=== PATIENT | female | born 1960 | race African-American/Black ===

== ENCOUNTER 2016-12-15 15:38 | Outpatient (CLI) | payer OTHER ==
[2016-07-18 21:11] VITALS: BP 208/116
[2016-12-15 15:56] LABS: BASOPHILS % 0.5 (0.0-1.5); EOSINOPHILS % 3.4 % (0.0-6.8); LYMPHOCYTES # 2.6 # k/uL (0.6-4.0); MEAN CORPUSCULAR HEMOGLOBIN 27.5 pg (28.0-34.0); MONOCYTES # 0.2 # k/uL (0.0-0.9); MONOCYTES % 3.7 % (0.0-11.0); NEUTROPHILS # 3.4 # k/uL (1.4-7.7)
[2016-12-15 16:18] LABS: eGFR (African) 40; eGFR (Non-African) 33
== END 2016-12-15 15:40 ==
LOC: LAB 15:38
PROVIDERS: ATTEND Internal Medicine Nephrology
DX: E11.22 Type 2 diabetes mellitus with diabetic chronic kidney disease (principal); I12.9 Hypertensive chronic kidney disease with stage 1 through stage 4 chronic kidney disease, or unspecified chronic kidney disease; N18.9 Chronic kidney disease, unspecified
CPT/HCPCS: 36415; 80053; 83036; 83970; 85025

== ENCOUNTER 2017-01-24 13:00 | Outpatient (CLI) | payer OTHER ==
[2016-07-18 21:11] VITALS: BP 208/116
--- NOTE | 2017-01-24 16:39 | Diagnostic Imaging Report ---
[facility] [id number] [facility].[address] [address] Report Submission Date: Jan 24, 2017 4:35:27 PM REGIONAL MANAGER Patient Study Name: ADRIANO DICKINSON Date: Jan 24, 2017 1:15:30 PM REGIONAL MANAGER Modality Type: US Gender: F Description: TRANSVAGINAL PELVIS : 60 Institution: [facility] Physician: JEYSON LONG Pelvic sonogram, transvaginal. History: Pelvic pain. Findings: The uterus is surgically absent. Neither ovary was visualized. Small amount of free fluid is present within the pelvis. Peristalsing bowel loops are seen within the pelvis. Impression: 1. Status post hysterectomy. No pelvic mass identified. 2. Small volume free pelvic fluid Electronically signed on Jan 24, 2017 4:35:27 PM REGIONAL MANAGER by: Paolo CHADWICK
== END 2017-01-24 13:02 ==
LOC: RAD 13:00
PROVIDERS: ATTEND Physician Assistant
DX: R10.2 Pelvic and perineal pain (principal)
CPT/HCPCS: 76830

== ENCOUNTER 2017-02-04 05:46 | Emergency (ER) | payer OTHER ==
--- NOTE | 2017-02-04 06:54 | Diagnostic Imaging Report ---
SHARIFA MCKEON~ [facility] [address] [facility] [address] [address] ~ ~ ~ ~ Report Submission Date: Feb 04, 2017 6:43:58 AM ROLL COVERER Patient ~ Study Name: ADRIANO DICKINSON ~ Date: Feb 04, 2017 6:25:13 AM ROLL COVERER ~ Modality Type: CR Gender: F ~ Description: SPINE : 60 ~ Institution: [facility] Physician: SHARIFA MCKEON ~ ~ ~ ~ Lumbar spine, AP and lateral, 3 images History: Low back pain, injury Findings: No fracture, subluxation or abnormal bone destruction is identified. Anterior osteophyte formation is noted at all levels. The vertebral bodies and intervertebral disc spaces are of normal height. Impression: Degenerative change but no acute abnormality. ~ Electronically signed on Feb 04, 2017 6:43:58 AM ROLL COVERER by: Vidal CHADWICK
--- NOTE | 2017-02-04 07:04 | ED Physician Documentation ---
Lower Extremity Problem - HISTORIAN Historian: patient - HPI Stated Complaint: LLE pain Chief Complaint: Lower Extremity Problem Additional Information: low back pain and sciatica type leg pain for 2 weeks Location of Injury: L leg Onset: days ago (14) Timing: still present Duration: sudden-Onset Recent Injury: Yes (pt. states she is always lifting and using back) Where: home Severity: moderate Quality: pain, tingling Front/Back of Body, Lg (Color): 1 - pain/tingling Exacerbated By: nothing Relieved By: nothing Associated Symptoms: denies: chest pain, shortness of breath, rapid heart rate, fainting Further Comments: no - ROS CONST: no problems MS/SKIN/LYMPH: leg pain CVS/RESP: none GI/: none EYES/ENT: none NERUO/PSYCH: denies: headache, difficulty walking, dizziness, anxiety, depression - PAST HX Past History: none PE Risk Factors: hypertension Other History: hyperlipidemia, hypertension, diabetes Type 2 Surgeries/Procedures: hysterectomy, other (ortho) Immunizations: referred to PCP Allergies/Adverse Reactions: Allergies Allergy/AdvReac Type Severity Reaction Status Date / Time latex Allergy Intermediate Rash Verified 02/04/17 05:57 Penicillins Allergy Intermediate Nausea/Vomi Verified 02/04/17 05:57 ting erythromycin base Allergy Verified 02/04/17 05:57 Home Medications: Ambulatory Orders Medication Instructions Recorded Chlorthalidone [Thalitone] 25 mg PO QD 11/08/15 CloNIDine HCL [Catapress] 0.1 mg PO QID 11/08/15 Losartan Potassium [Cozaar] 100 mg PO DAILY 11/08/15 Polyethylene Glycol 3350 [Miralax] 17 gm PO [id number] 11/08/15 Pravastatin Sodium 40 mg PO DAILY 11/08/15 Chlorzoxazone [Parafon Forte Dsc] 500 mg PO QID #20 tablet 07/08/16 Meloxicam [Mobic] 7.5 mg PO BID #10 tablet 07/08/16 - SOCIAL HX Smoking History: non-smoker Alcohol Use: none Drug Use: none - FAMILY HX Family History: none - VITAL SIGNS Vital Signs: Vital Signs Temp Pulse Resp BP Pulse Ox 98 H 16 196/95 94 02/04/17 05:50 02/04/17 05:50 02/04/17 05:50 02/04/17 05:50 - REVIEWED ASSESSMENTS Nursing Assessment Reviewed: Yes Vitals Reviewed: Yes Progress - Results/Orders Results/Orders: l-spine x-ray ordered - Progress Progress: pt. stable entire time in er Critical Care Note - Critical Care Note Total Time (mins): 0 ED Results Lab/Radiology - Lab Results Lab Results: none ordered - Radiology Radiology Impressions: x-ray shows no disc deterioration, mild arthritis of spine - Orders Orders: ED Orders Category Date Time Status L SPINE 2 OR 3 VIEWS [RAD] Stat Exams 02/04/17 Ordered Lower Extremity Problem - EXAM General Appearance: mild distress Hips: left hip: non-tender, normal inspection, normal range of motion, no evidence of injury Legs: left: soft tissue tenderness (over distribution of sciatic nerve), other ( pulses intact, no edema, no erythema) Knees: left: non-tender, normal inspection, normal range of motion, no evidence of injury Ankle: left: non-tender, normal inspection, normal range of motion, no evidence of injury Foot: left foot: non-tender, normal inspection, normal range of motion, no evidence of injury DTR - Lower Extremities: knee (R): 2+, knee (L): 1+, ankle (R): 2+, ankle (L): 2 + Neuro/Tendon: normal motor functions, no evidence tendon injury, sensory deficit (4th/5th toes) EENT: eye inspection normal, ENT inspection normal, pharynx normal, no signs of dehydration, NEYDA, no nystagmus, TM's nml RESPIRATORY: no resp distress, chest non-tender, breath sounds normal CVS: reg rate & rhythm, heart sounds normal, equal pulses, no murmur JOINT: joints nml, nml ROM VASCULAR: no vascular compromise, pulses full/equal NEURO/PSYCH: oriented X3, CN's nml as tested, motor nml SKIN: warm/dry, normal color BACK: normal inspection, no CVA tenderness Discharge Clincal Impression: Sciatica Qualifiers: Laterality: left Qualified Code(s): M54.32 - Sciatica, left side Home Medications: Ambulatory Orders Chlorthalidone [Thalitone] 25 mg PO QD 12/12/15 CloNIDine HCL [Catapress] 0.1 mg PO QID 11/08/15 Losartan Potassium [Cozaar] 100 mg PO DAILY 11/08/15 Polyethylene Glycol 3350 [Miralax] 17 gm PO [id number] 11/08/15 Pravastatin Sodium 40 mg PO DAILY 11/08/15 Chlorzoxazone [Parafon Forte Dsc] 500 mg PO QID #20 tablet 07/08/16 Meloxicam [Mobic] 7.5 mg PO BID #10 tablet 07/08/16 Comments: pt. discharged with scripts for Skelaxin 800 mg p.o. qid #60, Meloxicam 1 pill daily #15 Condition: Stable Disposition: 01 HOME, SELF-CARE Decision to Admit: NO Decision Time: 07:00
[2017-02-04 07:07] VITALS: BP 184/75
== END 2017-02-04 07:05 | disposition home or self-care (01) ==
LOC: ED 05:46
DX: M54.32 Sciatica, left side (principal)
CPT/HCPCS: 72100; 99283

== ENCOUNTER 2017-02-13 22:15 | Observation (INO) | payer OTHER ==
[2017-02-13] MEDS ORDERED: CloNIDine HCL 0.1 MG TABLET PO ONE ×2 (22:20→22:25)
[2017-02-13] MEDS ORDERED: LABETALOL HCL 100MG/20ML VIAL ONE (22:37)
[2017-02-13] MEDS ORDERED: LABETALOL HCL 100MG/20ML VIAL IVP STA (22:38)
--- NOTE | 2017-02-13 22:56 | ED Physician Documentation ---
General Adult - HISTORIAN Historian: patient, spouse - HPI Stated Complaint: high blood pressure Chief Complaint: General Adult Additional Information: Seen in ER at [facility] earlier today for elevated blood pressure. 205/110. Sent home without treatment at 1730, but her systolic was down to 160. At about 2030 , she noted her heart was pounding in her ears and she had a HOOKS. 206/119. Came to ER. Says she haqsn't missed any doses of her meds. 265/149 on arrival in ER. 229/89 after 0.2 mg clonidine po. - ROS CONST: no problems EYES/ENT: problems with vision CVS/RESP: denies: chest pain, shortness of breath NEURO/PSYCH: headache - PAST HX Past History: hypertension, other (sciatica, DM) Allergies/Adverse Reactions: Allergies Allergy/AdvReac Type Severity Reaction Status Date / Time latex Allergy Intermediate Rash Verified 02/13/17 22:49 Penicillins Allergy Intermediate Nausea/Vomi Verified 02/13/17 22:49 ting erythromycin base Allergy Verified 02/13/17 22:49 Home Medications: Ambulatory Orders Medication Instructions Recorded Chlorthalidone [Thalitone] 25 mg PO QD 11/08/15 CloNIDine HCL [Catapress] 0.41 mg PO TID 11/08/15 Losartan Potassium [Cozaar] 100 mg PO DAILY 11/08/15 Polyethylene Glycol 3350 [Miralax] 17 gm PO [id number] 11/08/15 Pravastatin Sodium 40 mg PO DAILY 11/08/15 Chlorzoxazone [Parafon Forte Dsc] 500 mg PO QID #20 tablet 07/08/16 Meloxicam [Mobic] 7.5 mg PO BID #10 tablet 07/08/16 - SOCIAL HX Smoking History: non-smoker Alcohol Use: none Drug Use: none - FAMILY HX Family History: No (no signif) - VITAL SIGNS Vital Signs: Vital Signs Temp Pulse Resp BP Pulse Ox 184/75 02/04/17 07:05 - REVIEWED ASSESSMENTS Nursing Assessment Reviewed: Yes Vitals Reviewed: Yes Progress - Progress Progress: BP 180's/80's for an hour afterr slow admin of 10 mg labetalol. 2354. spoke wit hDr. Alvarez. Will admit pt to obs-tele, to him. ED Results Lab/Radiology - Orders Orders: ED Orders Category Date Time Status Continuous EKG monitoring Q1H Care 02/13/17 22:45 Active Continuous Pulse Oximetry Q1H Care 02/13/17 22:45 Active CBC/PLATELET/DIFF Routine Lab 02/13/17 Ordered CMP Routine Lab 02/13/17 Ordered TROPONIN I (cTnI) Stat Lab 02/13/17 Ordered URINALYSIS Routine Lab 02/13/17 Ordered CloNIDine HCL [Catapress] Med 02/13/17 22:25 Discontinued 0.2 mg PO .STK-MED ONE CloNIDine HCL [Catapress] Med 02/13/17 22:20 Discontinued 0.2 mg PO NOW ONE Labetalol HCl [Trandate] Med 02/13/17 22:38 Discontinued 10 mg IVP NOW STA Labetalol HCl [Trandate] Med 02/13/17 22:37 Discontinued 200 mg .ROUTE .STK-MED ONE EKG WITH COMPARISON Stat Ther 02/13/17 Ordered General Adult Physical Exam - PHYSICAL EXAM GENERAL APPEARANCE: no distress EENT: eye inspection normal, ENT inspection normal NECK: normal inspection RESPIRATORY: no resp distress, chest non-tender, breath sounds normal CVS: reg rate & rhythm, heart sounds normal ABDOMEN: soft, normal bowel sounds, non-tender RECTAL: deferred BACK: other (movements w/o pain) SKIN: warm/dry, normal color EXTREMITIES: no evidence of injury NEURO: CN's nml as tested, motor nml, sensation nml, cognition normal Discharge Clincal Impression: Hypertension Qualifiers: Hypertension type: unspecified secondary hypertension Qualified Code(s): I15.9 - Secondary hypertension, unspecified; I15 - Secondary hypertension Home Medications: Ambulatory Orders Chlorthalidone [Thalitone] 25 mg PO QD 11/08/15 CloNIDine HCL [Catapress] 0.41 mg PO TID 11/08/15 Losartan Potassium [Cozaar] 100 mg PO DAILY 11/08/15 Polyethylene Glycol 3350 [Miralax] 17 gm PO [id number] 11/08/15 Pravastatin Sodium 40 mg PO DAILY 11/08/15 Chlorzoxazone [Parafon Forte Dsc] 500 mg PO QID #20 tablet 07/08/16 Meloxicam [Mobic] 7.5 mg PO BID #10 tablet 07/08/16 Condition: Good Disposition: ADMITTED INPATIENT Decision to Admit: [id number] Decision Time: 23:54
[2017-02-13 23:24] LABS: BASOPHILS % 0.7 (0.0-1.5); EOSINOPHILS % 6.1 % (0.0-6.8); LYMPHOCYTES # 1.6 # k/uL (0.6-4.0); MEAN CORPUSCULAR HEMOGLOBIN 27.9 pg (28.0-34.0); MONOCYTES # 0.3 # k/uL (0.0-0.9); MONOCYTES % 6.2 % (0.0-11.0); NEUTROPHILS # 2.3 # k/uL (1.4-7.7)
[2017-02-14] MEDS ORDERED: DICYCLOMINE HCL 20 MG TABLET PO PRN (00:58)
[2017-02-14 01:36] VITALS: BMI 27.4
[2017-02-14 06:01] LABS: APPEARANCE,URINE CLEAR (CLEAR); COLOR,URINE YELLOW (YELLOW); OCCULT BLOOD,URINE NEGATIVE (NEGATIVE); PH URINE 7.5 (5.0 - 8.0); UROBILINOGEN URINE 0.2 Eu (0.2-1.0)
[2017-02-14] MEDS ORDERED: LABETALOL HCL 100MG/20ML VIAL IVP ONE ×2 (06:04→06:52)
[2017-02-14] MEDS: amLODIPine BESYLATE 5 MG TABLET PO SCH ×2 (06:24→09:06)
--- NOTE | 2017-02-14 08:52 | History and Physical Report ---
History of Present Illnes - History of Present Illness Reason for Visit: Uncontrolled hypertension History of Present Illness: This is a 56 year old female admitted with uncontrolled hypertension. She usually sees Dr. Venegas for her blood pressure, and is on hydralazine, losartan and clonidine. She said that yesterday, she felt some pounding in her left ear and checked her blood pressure and it was about 260/120. She went to the ER at , and was given some clonidine (per patient history) and her blood pressure came down transiently, however when she returned home, it went back up again and on admission, it was 265/129. She was given IV lebetolol in the ER and it came down to a systolic of 180s, but she is kept as observation for control of her blood pressure, and I will have Dr. Desir see her tomorrow. She is noted to have a systolic murmur today which she says has not been noted previously. - Past Medical History Cardiac: HTN, Other (Renal insufficiency) ENT: Allergic rhinitis Endocrine: Diabetes - Past Surgical History Past Surgical History: Hysterectomy, Tonsillectomy, Other (sinus surgery, ganglion cyst removal) - Past Social History Smoke: No Alcohol: None Drugs: None Lives: With Family ( and son) Domestic Violence: Negative - Health Maintenance Health Maintenance: Cholesterol Influenza Vaccine: Current for this Influenza Season Pneumonia Vaccine: Yes Resuscitation Status: Resusciation Status Resuscitation Status Full Code - Unable to Obtain History Unable to Obtain: No Review of Systems - Review of Systems Constitutional: negative: Fever, Chills, Sweats Eyes: negative: pain, vision change ENT: negative: Ear Pain, Ear Discharge Respiratory: negative: Cough, Dry, Shortness of Breath Cardiovascular: negative: Chest Pain, Palpitations Gastrointestinal: negative: Nausea, Vomiting, Abdominal Pain Genitourinary: negative: Dysuria Musculoskeletal: negative: Neck Pain Skin: negative: Rash Neurological: negative: Weakness, Numbness, Incoordination, Confusion - Medications/Allergies Allergies/Adverse Reactions: Allergies Allergy/AdvReac Type Severity Reaction Status Date / Time latex Allergy Intermediate Rash Verified 02/13/17 22:49 Penicillins Allergy Intermediate Nausea/Vomi Verified 02/13/17 22:49 ting erythromycin base Allergy Verified 02/13/17 22:49 Current Inpatient Medications: Current Inpatient Medications Amlodipine Besylate (Norvasc) 5 mg PO DAILY UMESH Last Admin: 02/14/17 06:24 Dose: 5 mg Clonidine HCl (Catapress) 0.2 mg PO TID [facility] Dicyclomine HCl (Bentyl) 20 mg PO Q6 PRN PRN Reason: Abdominal Pain Insulin Detemir (Levemir Flex-Pen) 8 unit SQ HS [facility] Losartan Potassium (Cozaar) 100 mg PO DAILY [facility] Metformin HCl (Glucophage) [place] [id number] [facility] Last Admin: 02/14/17 08:05 Dose: 500 mg Miscellaneous ( Metaxalone) 800 mg PO QID [facility] Miscellaneous ( Meloxicam) 15 mg PO D [facility] Simvastatin (Zocor) [address] [facility] Exam - Exam Vital Signs: Vital Signs (72 hours) 02/14/17 02/14/17 02/14/17 00:32 01:00 01:02 Temperature 98.4 F Pulse Rate 77 Pulse Rate [ 68 Right Pulse ox] Respiratory 18 Rate Blood Pressure 168/63 168/63 [Left Arm] O2 Sat by Pulse 98 Oximetry 02/14/17 02/14/17 02/14/17 02:00 03:00 03:17 Temperature Pulse Rate 70 70 Pulse Rate [ Right Pulse ox] Respiratory Rate Blood Pressure 186/85 [Left Arm] O2 Sat by Pulse Oximetry 02/14/17 02/14/17 02/14/17 04:00 04:02 05:00 Temperature Pulse Rate 68 65 Pulse Rate [ Right Pulse ox] Respiratory Rate Blood Pressure [Left Arm] O2 Sat by Pulse 98 Oximetry 02/14/17 02/14/17 02/14/17 05:47 05:52 06:50 Temperature 97.1 F L Pulse Rate 66 Pulse Rate [ 70 Right Pulse ox] Respiratory 17 Rate Blood Pressure 211/85 219/95 [Left Arm] O2 Sat by Pulse 100 Oximetry 02/14/17 02/14/17 02/14/17 07:00 07:48 08:00 Temperature Pulse Rate 77 77 Pulse Rate [ 86 Right Pulse ox] Respiratory 16 Rate Blood Pressure [Left Arm] O2 Sat by Pulse 99 Oximetry 02/14/17 08:20 Temperature Pulse Rate 79 Pulse Rate [ Right Pulse ox] Respiratory Rate Blood Pressure [Left Arm] O2 Sat by Pulse Oximetry General: Alert, Oriented to Person, Oriented to Place, Oriented to Time, Cooperative, No acute distress HEENT: Atraumatic, PERRLA, EOMI Neck: No: Stridor, Rigidity Lungs: Clear to auscultation, Normal air movement, Speaks full Sentences. No: Respiratory Distress, Wheezes, Rales Cardiovascular: Regular rate, Murmur (II/ RAKEL) Murmur: Systolic Murmur Heart Murmur Grade: II Abdomen: Normal bowel sounds, Soft, No tenderness Genitourinary: No: Other Male Genitourinary: No: Other Female Genitourinary: No: Other Integumentary: Normal, [place], Warm Extremities: No clubbing, No cyanosis, No edema, Other (Feet are in very good condition, no onychomycosis, easily palpable pulses, no calluses, no decreased sensation) Neurological: Normal gait, Normal speech Psych/Mental Status: Mental status NL, Mood NL Assessment/Plan - Assessment/Plan (1) Hypertension Status: Acute Current Visit: No Qualifiers: Hypertension type: renovascular hypertension Qualified Code(s): I15.0 - Renovascular hypertension Assessment: Continue losartan, clonidine and hydralazine Have started PO amlodipine Will discuss with Dr. Venegas Plan: Discussed with Dr. Venegas, who recommended stopping the PO clonidine and starting a clonidine TTS-2 patch. (2) Diabetes mellitus Status: Acute Current Visit: Yes Qualifiers: Diabetes mellitus type: type 2 Diabetes mellitus complication status: with circulatory complication Diabetes mellitus complication detail: with other circulatory complications Diabetes mellitus criminology teacher insulin use: with half-way use Qualified Code(s): E11.59 - Type 2 diabetes mellitus with other circulatory complications; Z79.4 - assisted (current) use of insulin Assessment: Continue current insulin therapy Reviewed last A1C Dr. Venegas recommended against stopping metformin at this time (3) Chronic renal insufficiency, stage II (mild) Status: Acute Current Visit: Yes Assessment: Chronic Plan: With current creatinine, may need to d/c her metformin VTE Assessment - RISK FACTOR SCORE VTE RISK FACTOR SCORES: AGE 40-60 YEARS - RISK VTE LOW RISK: SCORE OF 1 OR LESS (RISK PROXIMAL DVT 0.4%) NO PROPHYLAXIS NEEDED (no DVT prophylaxis indicated)
[2017-02-14] MEDS ORDERED: METAXALONE 800 MG PO SCH (09:00)
[2017-02-14] MEDS ORDERED: CloNIDine HCL 0.1 MG TABLET PO SCH (09:00)
[2017-02-14] MEDS ORDERED: MELOXICAM 15 MG PO SCH (09:00)
[2017-02-14] MEDS: LOSARTAN POTASSIUM 50 MG TABLET PO SCH (09:06)
[2017-02-14] MEDS ORDERED: INSULIN DETEMIR 100 UNIT/ML 3ML PEN.INJCTR SQ ONE (12:43)
[2017-02-14] MEDS ORDERED: SIMVASTATIN 20 MG TABLET ONE (12:43)
[2017-02-14] MEDS ORDERED: PATIENT OWN MED 1 EACH EACH TOP SCH (17:00)
[2017-02-14] MEDS: SIMVASTATIN 20 MG TABLET PO SCH (20:22)
[2017-02-14] MEDS: INSULIN DETEMIR 100 UNIT/ML 3ML PEN.INJCTR SQ SCH (20:24)
[2017-02-15] MEDS ORDERED: LABETALOL HCL 100MG/20ML VIAL IVP STA ×3 (01:38→08:45)
[2017-02-15] MEDS ORDERED: SALINE FLUSH 10 ML DISP.SYRIN IVF ONE ×6 (01:44→12:37)
[2017-02-15 06:59] LABS: eGFR (African) > 60; eGFR (Non-African) > 60
[2017-02-15] MEDS: ONDANSETRON HCL/PF 4 MG/ 2ML VIAL IVP PRN ×2 (07:01→12:48)
[2017-02-15] MEDS: amLODIPine BESYLATE 5 MG TABLET PO SCH (08:32)
[2017-02-15] MEDS: LOSARTAN POTASSIUM 50 MG TABLET PO SCH (08:33)
--- NOTE | 2017-02-15 08:52 | Inpatient Progress Note ---
Subjective - Required Recertification Statement I anticipate X number of days because-include discharge plan: 1 - Review of Systems Events since last encounter: Manasa is still having markedly elevated blood pressures. She had some left sided facial pain and some nausea and vomiting. Both of these have abated. Her blood pressure is still 202/120 after her last dose of 10 mg labetalol. I called the admission advisor at for transfer to their facility, however they are currently on a bed hold. I called Dr. Venegas also and he called them also, but we are not able to procure a bed for transfer. They will call today if a bed opens up. Otherwise, Dr. Venegas will see her this afternoon when he gets here at about 1:30. In the meantime, he has recommended that we continue the labetalol to control her blood pressure. I have ordered another EKG and stat troponin also, both of which are pending. General: Denies: Chills HEENT: Head Aches. Denies: Visual Changes Pulmonary: Denies: Dyspnea, Cough Cardiovascular: Denies: Chest Pain, Palpitations Gastrointestinal: Nausea, Vomiting Genitourinary: Denies: Dysuria, Frequency Musculoskeletal: Denies: Neck Pain, Shoulder Pain Neurological: Denies: Change in Speech, Confusion Objective - Exam Vitals and I&O: Vital Signs Temp 98.6 F 02/15/17 06:00 Pulse 98 H 02/15/17 08:27 Resp 20 02/15/17 06:00 BP 212/116 02/15/17 06:00 Pulse Ox 98 02/15/17 07:29 Intake & Output 02/14/17 02/14/17 02/15/17 11:59 23:59 11:59 Intake Total 120 560 240 Balance 120 560 240 Weight 68.039 kg Intake: Oral 120 560 240 Other: Voiding Method Toilet # Voids 1 1 General: Alert, Oriented to Person, Oriented to Place, Mild distress (due to facial pain (which is decreased)) HEENT: Atraumatic, PERRLA, EOMI, Mouth Mucous membr. moist/[place] Neck: Supple, No JVD Lungs: Clear to auscultation, Normal air movement Cardiovascular: Regular rate, Murmur (II/) Abdomen: Normal bowel sounds, Soft, No tenderness, No masses, Other Extremities: No clubbing, No cyanosis Neurological: Normal speech, Cranial nerves 3-12 NL, Reflexes 2+, Other (no dysmetria, no motor deficits) - Results Results: Laboratory Results WBC 4.70 K/ul (4.00-12.00) 02/13/17 23:13 RBC 4.04 M/ul (3.90-5.20) 02/13/17 23:13 Hgb 11.3 g/dL (12.0-16.0) L 02/13/17 23:13 Hct 35.0 % (34.5-46.5) 02/13/17 23:13 MCV 86.4 fl (80.0-100.0) 02/13/17 23:13 MCH 27.9 pg (28.0-34.0) L 02/13/17 23: MCHC 32.3 g/dL (30.0-36.0) 02/13/17 23:13 RDW 13.0 % (11.3-14.3) 02/13/17 23:13 Plt Count 224 K/mm3 (130-400) 02/13/17 23:13 Neut % (Auto) 49.8 % (39.0-79.0) 02/13/17 23:13 Lymph % (Auto) 35.0 % (16.0-50.0) 02/13/17 23:13 [place] % (Auto) 6.2 % (0.0-11.0) 02/13/17 23:13 Eos % (Auto) 6.1 % (0.0-6.8) 02/13/17 23:13 Baso % (Auto) 0.7 (0.0-1.5) 02/13/17 23:13 Neut # 2.3 # k/uL (1.4-7.7) 02/13/17 23:13 Lymph # 1.6 # k/uL (0.6-4.0) 02/13/17 23:13 [place] # 0.3 # k/uL (0.0-0.9) 02/13/17 23:13 Eos # 0.3 # k/uL (0.0-0.6) 02/13/17 23:13 Baso # 0.0 # k/uL (0.0-0.5) 02/13/17 23:13 Reactive Lymphs % 2.2 % (0.0-5.0) 02/13/17 23:13 Reactive Lymphs # 0.1 # k/uL (0.0-0.8) 02/13/17 23:13 Sodium 140 mmol/L (136-145) 02/15/17 06:05 Potassium 3.2 mmol/L (3.5-5.0) L 02/15/17 06:05 Chloride 105 mmol/L (98-110) 02/15/17 06:05 Carbon Dioxide 29 mmol/L (20-32) 02/15/17 06:05 BUN 24 mg/dL (10-26) 02/15/17 06:05 Creatinine 1.2 mg/dL (0.4-1.5) 02/15/17 06:05 Estimated Creat Clear 66 02/15/17 06:05 Est GFR ( Amer) > 60 (60-) 02/15/17 06:05 Est GFR (Non-Af Amer) > 60 (60-) 02/15/17 06:05 Glucose 176 mg/dL (70-99) H 02/15/17 06:05 Calcium 11.1 mg/dL (8.5-10.5) H 02/15/17 06:05 Total Bilirubin 0.3 mg/dL (0.2-1.2) 02/13/17 23:13 AST 16 U/L (0-41) 02/13/17 23:13 ALT 12 U/L (0-45) 02/13/17 23:13 Alkaline Phosphatase 77 U/L (46-116) 02/13/17 23:13 Troponin I < 0.03 ng/mL (0.03-0.06) L 02/13/17 23:13 Total Protein 7.6 g/dL (6.0-8.5) 02/13/17 23:13 Albumin 4.8 g/dL (3.0-5.5) 02/13/17 23:13 Urine Color Yellow (YELLOW) 02/13/17 23:30 Urine Appearance Clear (CLEAR) 02/13/17 23:30 Urine pH 7.5 (5.0 - 8.0) 02/13/17 23:30 Ur Specific [place] 1.020 (1.010-1.030) 02/13/17 23:30 Urine Protein Negative mg/dL (NEGATIVE) 02/13/17 23:30 Urine Ketones Negative mg/dL (NEGATIVE) 02/13/17 23:30 Urine Occult Blood Negative (NEGATIVE) 02/13/17 23:30 Urine Nitrite Negative (NEGATIVE) 02/13/17 23:30 Urine Bilirubin Negative (NEGATIVE) 02/13/17 23:30 Urine Urobilinogen 0.2 Eu (0.2-1.0) 02/13/17 23:30 Ur Leukocyte Esterase Negative (NEGATIVE) 02/13/17 23:30 Urine Glucose Trace mg/dL (NEGATIVE) 02/13/17 23:30 Assessment/Plan - Assessment/Plan (1) Hypertension Status: Acute Current Visit: No Qualifiers: Hypertension type: renovascular hypertension Qualified Code(s): I15.0 - Renovascular hypertension Assessment: Not improved Plan: Continue to work on transfer See Dr. Venegas today if unable to effect transfer prior to his arrival (2) Diabetes mellitus Status: Acute Current Visit: Yes Qualifiers: Diabetes mellitus type: type 2 Diabetes mellitus complication status: with circulatory complication Diabetes mellitus complication detail: with other circulatory complications Diabetes mellitus half-way insulin use: with oil heaterman use Qualified Code(s): E11.59 - Type 2 diabetes mellitus with other circulatory complications; Z79.4 - termite treater (current) use of insulin (3) Chronic renal insufficiency, stage II (mild) Status: Acute Current Visit: Yes
[2017-02-15] MEDS ORDERED: CLONIDINE TTS TOP SCH (09:00)
[2017-02-15] MEDS ORDERED: hydrALAZINE HCL 20 MG/1 ML IVP ONE (10:01)
[2017-02-15] MEDS: CloNIDine HCL 0.1 MG TABLET PO SCH (17:14)
[2017-02-15] MEDS: HYDRALAZINE HCL 25 MG TABLET PO SCH (17:14)
[2017-02-15] MEDS: SIMVASTATIN 20 MG TABLET PO SCH (19:42)
[2017-02-15] MEDS: INSULIN DETEMIR 100 UNIT/ML 3ML PEN.INJCTR SQ SCH (20:08)
[2017-02-16] MEDS: CloNIDine HCL 0.1 MG TABLET PO SCH ×2 (00:05→05:19)
[2017-02-16] MEDS: HYDRALAZINE HCL 25 MG TABLET PO SCH (08:42)
[2017-02-16] MEDS: LOSARTAN POTASSIUM 50 MG TABLET PO SCH (08:43)
[2017-02-16] MEDS: amLODIPine BESYLATE 5 MG TABLET PO SCH (08:44)
[2017-02-16 10:11] VITALS: BP 126/64
--- NOTE | 2017-02-16 14:51 | Discharge Summary ---
DATE OF ADMISSION: February 14, 2017 DATE OF DISCHARGE: February 16, 2017 DIAGNOSES ON THIS HOSPITALIZATION: 1. Malignant hypertension. 2. Diabetes mellitus type 2. CONSULTATIONS ON THIS HOSPITALIZATION: Cardiology with Dr. Desir. Nephrology with Dr. Venegas. SUMMARIZATION OF ADMISSION HISTORY AND PHYSICAL: This is a 56-year-old female who presented with uncontrolled blood pressure. She had been to the [facility] and was given some medication. Her blood pressure transiently came down but,when she returned home, it was markedly elevated again at 260/120. As a result, she came to our emergency room for an evaluation where was noted to continue to have markedly elevated blood pressures. She was given IV labetalol with minimal improvement and then some IV hydralazine, which actually did help. Dr. Venegas had suggested a 0.2 mg clonidine patch and that was placed with continuation of her oral clonidine also. In addition to this, her losartan was continued during her hospital stay , as well as her oral hydralazine. HOSPITAL COURSE: She actually improved significantly after the aforementioned changes were made. She was discharged to home then with the addition of a clonidine TTS-2 patch to be applied weekly. Continue clonidine 0.2 mg p.o. t.i.d. and hydralazine 50 mg p.o. t.i.d. and losartan 100 mg t.i.d. and continue her insulin as prior to admission. CONDITION ON DISCHARGE: She is discharged to home in markedly improved condition. DISCHARGE INSTRUCTIONS: She will follow up with Dr. Desir on Tuesday of this week and will follow up with Dr. Lopez in the next week. NETTA
[2017-02-21] MEDS ORDERED: PATIENT OWN MED 1 EACH EACH TOP SCH (06:00)
== END 2017-02-16 09:40 | disposition home or self-care (01) ==
LOC: ED 22:15 → SOUTH 02-14 00:04
PROVIDERS: ADMIT Nurse Practitioner; ATTEND Family Medicine
DX: I10 Essential (primary) hypertension (principal); E11.9 Type 2 diabetes mellitus without complications
CPT/HCPCS: 36415; 80048; 80053; 81002; 84484; 85025; 93005; G0378; J0360; J1815; J2405; J3490; 96372; 96374; 96375; 96376; S1016

== ENCOUNTER 2017-02-18 03:31 | Emergency (ER) | payer OTHER ==
[2017-02-18] MEDS ORDERED: HYDRALAZINE HCL 25 MG TABLET PO ONE (03:34)
[2017-02-18] MEDS ORDERED: hydrALAZINE HCL 20 MG/1 ML IVP ONE ×4 (03:42→06:28)
[2017-02-18] MEDS ORDERED: ONDANSETRON HCL/PF 4 MG/ 2ML VIAL ONE (06:58)
[2017-02-18] MEDS ORDERED: ONDANSETRON HCL/PF 4 MG/ 2ML VIAL IVP ONE (07:01)
[2017-02-18 08:10] VITALS: BP 159/77
--- NOTE | 2017-02-18 08:17 | ED Physician Documentation ---
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) Timing: still present Severity: moderate Modifying Factors: hxc of accelerated htn Quality: pounding Location: ears Further Comments: no - ROS CONST: other (recent hosp for bp) EYES/ENT: none CVS/RESP: none GI/: none MS/SKIN/LYMPH: none NEURO/PSYCH: headache - PAST HX Past History: hypertension Other History: none Surgeries/Procedures: none Immunizations: referred to PCP Allergies/Adverse Reactions: Allergies Allergy/AdvReac Type Severity Reaction Status Date / Time latex Allergy Intermediate Rash Verified 02/18/17 03:42 Penicillins Allergy Intermediate Nausea/Vomi Verified 02/18/17 03:42 ting erythromycin base Allergy Verified 02/18/17 03:42 Home Medications: Ambulatory Orders Medication Instructions Recorded Chlorthalidone [Thalitone] 25 mg PO QD 11/08/15 CloNIDine HCL [Catapress] 0.41 mg PO TID 11/08/15 Losartan Potassium [Cozaar] 100 mg PO DAILY 11/08/15 Polyethylene Glycol 3350 [Miralax] 17 gm PO [id number] 11/08/15 Pravastatin Sodium 40 mg PO DAILY 11/08/15 Chlorzoxazone [Parafon Forte Dsc] 500 mg PO QID #20 tablet 07/08/16 Meloxicam [Mobic] 7.5 mg PO BID #10 tablet 07/08/16 - SOCIAL HX Smoking History: non-smoker Alcohol Use: none Drug Use: none - FAMILY HX Family History: No - VITAL SIGNS Vital Signs: Vital Signs Temp Pulse Resp BP Pulse Ox 88 18 159/77 99 02/18/17 08:08 02/18/17 08:08 02/18/17 08:08 02/18/17 08:08 - REVIEWED ASSESSMENTS Nursing Assessment Reviewed: Yes Vitals Reviewed: Yes Progress - Results/Orders Results/Orders: no testing ordered - Progress Progress: pt. given a total of 40 mg hydralazine ivp with reduction from 220/120 to 147/71 Critical Care Note - Critical Care Note Total Time (mins): 0 ED Results Lab/Radiology - Lab Results Lab Results: see nurses notes - Radiology Radiology Impressions: no testing ordered - Orders Orders: ED Orders Category Date Time Status Place Saline Lock/IV Now Care 02/18/17 03:42 Active Hydralazine HCl [Apresoline] Med 02/18/17 03:34 Discontinued 50 mg PO QID ONE Ondansetron HCl/Pf [Zofran 4 mg/2 ml] Med 02/18/17 06:58 Discontinued 8 mg .ROUTE .STK-MED ONE Ondansetron HCl/Pf [Zofran 4 mg/2 ml] Med 02/18/17 07:01 Discontinued 8 mg IVP NOW ONE hydrALAZINE HCL [Apresoline] Med 02/18/17 03:42 Discontinued 10 mg IVP NOW ONE hydrALAZINE HCL [Apresoline] Med 02/18/17 04:51 Discontinued 10 mg IVP NOW ONE hydrALAZINE HCL [Apresoline] Med 02/18/17 05:30 Discontinued 10 mg IVP NOW ONE hydrALAZINE HCL [Apresoline] Med 02/18/17 06:28 Discontinued 10 mg IVP NOW ONE General Adult Physical Exam - PHYSICAL EXAM GENERAL APPEARANCE: moderate distress EENT: eye inspection normal, ENT inspection normal, pharynx normal, no signs of dehydration, NEYDA, no nystagmus, TM's nml NECK: normal inspection, thyroid normal, supple RESPIRATORY: no resp distress, chest non-tender, breath sounds normal CVS: reg rate & rhythm, heart sounds normal, equal pulses ABDOMEN: soft, no organomegaly, normal bowel sounds, no abdominal bruit, no distension, non-tender BACK: normal inspection, no CVA tenderness SKIN: warm/dry, normal color EXTREMITIES: non-tender, normal range of motion, no evidence of injury, no edema NEURO: oriented X3, CN's nml as tested, motor nml, sensation nml, mood/affect nml, cognition normal Discharge Clincal Impression: Hypertensive crisis Referrals: Shilpi Lopez MD [Primary Care Provider] - 2 Days Home Medications: Ambulatory Orders Chlorthalidone [Thalitone] 25 mg PO QD 11/08/15 CloNIDine HCL [Catapress] 0.41 mg PO TID 11/08/15 Losartan Potassium [Cozaar] 100 mg PO DAILY 11/08/15 Polyethylene Glycol 3350 [Miralax] 17 gm PO [id number] 11/08/15 Pravastatin Sodium 40 mg PO DAILY 11/08/15 Chlorzoxazone [Parafon Forte Dsc] 500 mg PO QID #20 tablet 07/08/16 Meloxicam [Mobic] 7.5 mg PO BID #10 tablet 07/08/16 Comments: Pt. discharged in stable condition with bp reduced to 147/71, n/v reduced, following up today with nephrology. Increase hydralazine to 100 mg p.o. bid. Condition: Stable Disposition: 01 HOME, SELF-CARE Decision to Admit: NO Decision Time: 08:05
== END 2017-02-18 08:08 | disposition home or self-care (01) ==
LOC: ED 03:31
DX: I10 Essential (primary) hypertension (principal)
CPT/HCPCS: J0360; J2405; 96374; 96375; 96376; 99283; S1016

== ENCOUNTER 2017-02-21 01:18 | Emergency (ER) | payer OTHER ==
[2017-02-21] MEDS: LABETALOL HCL 100MG/20ML VIAL IVP STA (01:36)
[2017-02-21] MEDS: ONDANSETRON HCL/PF 4 MG/ 2ML VIAL IVP ONE (01:39)
--- NOTE | 2017-02-21 01:44 | ED Physician Documentation ---
General Adult - HISTORIAN Historian: patient, paramedics - HPI Stated Complaint: high blood pressure Chief Complaint: General Adult Additional Information: Awakened from sleep by buzzing/roaring in left ear and right occipital HOOKS. Noted BP elevated. Says Dr. Venegas told her to come to [facility] if her BP elevated again. When EMS arrived, her systolic BP was 221 and she mentioned blurred vision. Daughter wanted her brought to [facility] ER. BP here 221/98. BP 187/84 eight minutes after 10 mg IV labetalol. Says she feels much better. - ROS CONST: no problems - PAST HX Past History: hypertension, other (NIDDM) Allergies/Adverse Reactions: Allergies Allergy/AdvReac Type Severity Reaction Status Date / Time latex Allergy Intermediate Rash Verified 02/18/17 03:42 Penicillins Allergy Intermediate Nausea/Vomi Verified 02/18/17 03:42 ting erythromycin base Allergy Verified 02/18/17 03:42 Home Medications: Ambulatory Orders Medication Instructions Recorded Chlorthalidone [Thalitone] 25 mg PO QD 11/08/15 CloNIDine HCL [Catapress] 0.41 mg PO TID 11/08/15 Losartan Potassium [Cozaar] 100 mg PO DAILY 11/08/15 Polyethylene Glycol 3350 [Miralax] 17 gm PO [id number] 11/08/15 Pravastatin Sodium 40 mg PO DAILY 11/08/15 Chlorzoxazone [Parafon Forte Dsc] 500 mg PO QID #20 tablet 07/08/16 Meloxicam [Mobic] 7.5 mg PO BID #10 tablet 07/08/16 hydrALAZINE HCL [Apresoline] 100 mg PO BID 02/21/17 - SOCIAL HX Smoking History: non-smoker - FAMILY HX Family History: No - VITAL SIGNS Vital Signs: Vital Signs Temp Pulse Resp BP Pulse Ox 159/77 02/18/17 08:08 - REVIEWED ASSESSMENTS Nursing Assessment Reviewed: Yes Vitals Reviewed: Yes Progress - Progress Progress: 251, Discussed patient with with Dr. Mendez, [facility] ER. Will send patient home but to contact Dr. Venegas today. BP Stable for more than an hour 194 systolic when she got up to bathroom. Otherwise, 160's, 170's over 80's. 025, 167/75. ED Results Lab/Radiology - Orders Orders: ED Orders Category Date Time Status Continuous EKG monitoring Q1H Care 02/21/17 01:28 Active Continuous Pulse Oximetry Q1H Care 02/21/17 01:[address] Saline Lock/IV Now Care 02/21/17 01:28 Active CBC/PLATELET/DIFF Routine Lab 02/21/17 Ordered CMP Routine Lab 02/21/17 Ordered URINALYSIS Routine Lab 02/21/17 Ordered Labetalol HCl [Trandate] Med 02/21/17 01:28 Discontinued 10 mg IVP NOW STA Ondansetron HCl/Pf [Zofran 4 mg/2 ml] Med 02/21/17 01:36 Once 4 mg IVP NOW ONE Oxygen Daily Oxygen 02/21/17 01:45 Ordered EKG WITH COMPARISON Stat Ther 02/21/17 Ordered General Adult Physical Exam - PHYSICAL EXAM GENERAL APPEARANCE: moderate distress EENT: eye inspection normal, ENT inspection normal, pharynx normal NECK: normal inspection, supple RESPIRATORY: no resp distress, chest non-tender, breath sounds normal CVS: reg rate & rhythm, heart sounds normal ABDOMEN: soft, normal bowel sounds RECTAL: deferred BACK: normal inspection SKIN: warm/dry, normal color EXTREMITIES: no evidence of injury NEURO: CN's nml as tested, motor nml, sensation nml Discharge Clincal Impression: Hypertensive crisis Additional Instructions: Contact Dr. Venegas today. Home Medications: Ambulatory Orders Chlorthalidone [Thalitone] 25 mg PO QD 11/08/15 CloNIDine HCL [Catapress] 0.41 mg PO TID 11/08/15 Losartan Potassium [Cozaar] 100 mg PO DAILY 11/08/15 Polyethylene Glycol 3350 [Miralax] 17 gm PO [id number] 11/08/15 Pravastatin Sodium 40 mg PO DAILY 11/08/15 Chlorzoxazone [Parafon Forte Dsc] 500 mg PO QID #20 tablet 07/08/16 Meloxicam [Mobic] 7.5 mg PO BID #10 tablet 07/08/16 hydrALAZINE HCL [Apresoline] 100 mg PO BID 02/21/17 Condition: Fair Disposition: 01 HOME, SELF-CARE Decision to Admit: NO Decision Time: 02:52
[2017-02-21 02:16] LABS: BASOPHILS % 0.5 (0.0-1.5); LYMPHOCYTES # 1.7 # k/uL (0.6-4.0); MEAN CORPUSCULAR HEMOGLOBIN 28.5 pg (28.0-34.0); MONOCYTES # 0.2 # k/uL (0.0-0.9); MONOCYTES % 3.3 % (0.0-11.0); NEUTROPHILS # 3.3 # k/uL (1.4-7.7)
[2017-02-21 02:42] LABS: eGFR (African) > 60; eGFR (Non-African) 38
[2017-02-21 03:20] VITALS: BP 153/68
[2017-02-21 06:25] LABS: APPEARANCE,URINE CLEAR (CLEAR); COLOR,URINE YELLOW (YELLOW); OCCULT BLOOD,URINE NEGATIVE (NEGATIVE); UROBILINOGEN URINE 0.2 Eu (0.2-1.0)
== END 2017-02-21 03:05 | disposition home or self-care (01) ==
LOC: ED 01:18
DX: I10 Essential (primary) hypertension (principal)
CPT/HCPCS: 80053; 81002; 85025; 93005; J2405; J3490; 96374; 96375; 99283; S1016

== ENCOUNTER 2017-02-22 14:15 | Outpatient (CLI) | payer OTHER ==
[2017-02-21 03:20] VITALS: BP 153/68
[2017-02-22 14:56] LABS: BASOPHILS % 0.3 (0.0-1.5); EOSINOPHILS % 4.1 % (0.0-6.8); LYMPHOCYTES # 2.1 # k/uL (0.6-4.0); MONOCYTES # 0.2 # k/uL (0.0-0.9); MONOCYTES % 3.4 % (0.0-11.0)
[2017-02-22 15:17] LABS: eGFR (African) > 60; eGFR (Non-African) > 60
== END 2017-02-22 14:16 ==
LOC: LAB 14:15
PROVIDERS: ATTEND Internal Medicine Nephrology
DX: E11.22 Type 2 diabetes mellitus with diabetic chronic kidney disease (principal); I12.9 Hypertensive chronic kidney disease with stage 1 through stage 4 chronic kidney disease, or unspecified chronic kidney disease; N18.9 Chronic kidney disease, unspecified
CPT/HCPCS: 36415; 80053; 83970; 85025

== ENCOUNTER 2017-03-15 15:22 | Outpatient (CLI) | payer OTHER ==
[2017-03-15 16:03] LABS: BASOPHILS % 0.5 (0.0-1.5); EOSINOPHILS % 3.8 % (0.0-6.8); MEAN CORPUSCULAR HEMOGLOBIN 27.7 pg (28.0-34.0); MEAN CORPUSCULAR VOLUME 85.3 fl (80.0-100.0); MONOCYTES % 3.6 % (0.0-11.0); NEUTROPHILS # 3.4 # k/uL (1.4-7.7)
[2017-03-15 16:24] LABS: eGFR (African) > 60; eGFR (Non-African) > 60
[2017-03-16 09:07] LABS: APPEARANCE,URINE Clear (CLEAR); COLOR,URINE Yellow (YELLOW); OCCULT BLOOD,URINE Negative (NEGATIVE); PH URINE 5.5 (5.0 - 8.0); UROBILINOGEN URINE 0.2 Eu (0.2-1.0)
[2017-03-20 17:11] LABS: ALDOS/RENIN RATIO 105.8 (0.0-30.0); RENIN ACTIVITY 0.173 ng/mL/hr (0.167-5.380)
== END 2017-03-15 15:23 ==
LOC: LAB 15:22
PROVIDERS: ATTEND Internal Medicine Nephrology
DX: I12.9 Hypertensive chronic kidney disease with stage 1 through stage 4 chronic kidney disease, or unspecified chronic kidney disease (principal); N18.9 Chronic kidney disease, unspecified
CPT/HCPCS: 36415; 80053; 81002; 82088; 83036; 83835; 84244; 85025

== ENCOUNTER 2017-03-29 12:51 | Outpatient (CLI) | payer OTHER | END 2017-03-29 12:52 | LOC: CARD 12:51 | PROVIDERS: ATTEND Internal Medicine Cardiovascular Disease | DX: I10 Essential (primary) hypertension (principal) | CPT/HCPCS: 99214 ==

== ENCOUNTER 2017-05-24 15:09 | Outpatient (CLI) | payer OTHER | END 2017-05-24 15:10 | LOC: NEPHRO 15:09 | PROVIDERS: ATTEND Internal Medicine Nephrology | DX: I10 Essential (primary) hypertension (principal); N18.9 Chronic kidney disease, unspecified | CPT/HCPCS: 99213 ==

== ENCOUNTER 2017-06-21 11:25 | Outpatient (CLI) | payer OTHER | END 2017-06-21 11:26 | LOC: LAB 11:25 | PROVIDERS: ATTEND Physician Assistant | DX: Z00.00 Encounter for general adult medical examination without abnormal findings (principal) | CPT/HCPCS: 36415; 84439; 84443; 84481 ==

== ENCOUNTER 2017-06-24 09:54 | Outpatient (CLI) | payer OTHER ==
--- NOTE | 2017-06-24 19:23 | Diagnostic Imaging Report ---
JEYSON LONG [facility] [address] [facility] [address] [id number] Report Submission Date: Jun 24, 2017 5:21:18 PM CDT Patient Study Name: ADRIANO DICKINSON Date: Jun 24, 2017 10:06:35 AM CDT Modality Type: US Gender: F Description: US THYROID SOFT TISS HEAD/NCK : 60 Institution: [facility] Physician: JEYSON LONG Examination: Ultrasound thyroid History: Palpable lump Comparison exams: None available Findings: Right thyroid lobe measures 5.0 x 1.7 x 2.8 cm. Left thyroid lobe measures 5.2 x 2.1 x 2.1cm. Scattered nodules identified bilaterally. Largest on the on the right measures 1.1 cm and is associated with peripheral echogenic reflections consistent with calcifications. Solid central characteristics. Largest nodule on the left measures 4 mm. Isthmus measures 3.3 mm. Right aspect of the thyroid gland is more prominent measuring 6.3 mm. Impression: Bilateral thyroid nodules and right isthmus fullness. Largest nodule is on the right which appears to demonstrate solid central characteristics with peripheral calcifications. Options include close interval followup versus needle aspiration for cytologic evaluation. Electronically signed on Jun 24, 2017 5:21:18 PM CDT by: Brian CHADWICK
== END 2017-06-24 09:55 ==
LOC: RAD 09:54
PROVIDERS: ATTEND Physician Assistant
DX: R22.1 Localized swelling, mass and lump, neck (principal)
CPT/HCPCS: 76536

== ENCOUNTER 2017-07-01 12:27 | Emergency (ER) | payer OTHER ==
--- NOTE | 2017-07-01 12:55 | ED Physician Documentation ---
Neuro Symptoms - HPI Stated Complaint: bad breath, nausea, dizzy Chief Complaint: Neurological Symptoms Additional Information: she continues to complain of bad breath, and now causing her to be nauseated. She has high blood pressure and staes that these symptoms started the day after she was given "lots of medicine" to improve her BP when she was in the ER. She was recently seen in clinic for this same complaint. She has also seen a dentist for this same complaint. They told her that she had dry mouth and gave her medicine for that. 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 She is taking 2 different medicned that are known for causeing olfactory problems. Onset: days ago Timing: still present Last known Well Date: 07/01/17 Last Known Well Time: 13:13 Last known Well Code/Unknown Code: Unknown Severity: mild Context: denies: insect, tick bite, falling injury, head injury Further Comments: no - CHARACTERS OF DEFICIT New Weakness: none Altered Sensation: none Vision Problems: No Impaired Speech/ Swallowing: No Decreased Ability: none Cognition is Usually: alert, oriented x3 Gait is Usually: walks w/o assistance Associated Symptoms: other (bad breath causing her to be nauseated) - ROS MENTAL STATUS: none CVS/Resp Upper Extremity Problem: none GI/ DYSPNEA: none MS/SKIN/LYMPH: none Neuro/Psych: none - PAST HX Past History: diabetes Type 1 Other History: hyperlipidemia, hypertension Surgeries/Procedures: hysterectomy Allergies/Adverse Reactions: Allergies Allergy/AdvReac Type Severity Reaction Status Date / Time latex Allergy Intermediate Rash Verified 07/01/17 12:43 Penicillins Allergy Intermediate Nausea/Vomi Verified 07/01/17 12:43 ting erythromycin base Allergy Verified 07/01/17 12:43 Home Medications: Ambulatory Orders Medication Instructions Recorded Chlorthalidone [Thalitone] 25 mg PO QD 11/08/15 CloNIDine HCL [Catapress] 0.41 mg PO TID 11/08/15 Losartan Potassium [Cozaar] 100 mg PO DAILY 11/08/15 Polyethylene Glycol 3350 [Miralax] 17 gm PO [id number] 11/08/15 Pravastatin Sodium 40 mg PO DAILY 11/08/15 Chlorzoxazone [Parafon Forte Dsc] 500 mg PO QID #20 tablet 07/08/16 Meloxicam [Mobic] 7.5 mg PO BID #10 tablet 07/08/16 - FAMILY HX Family History: none - SOCIAL HX Smoking History: non-smoker Alcohol Use: none Drug Use: none - VITAL SIGNS Vital Signs: Vital Signs Temp Pulse Resp BP Pulse Ox 97.9 F 89 15 154/101 99 07/01/17 12:44 07/01/17 12:44 07/01/17 12:44 07/01/17 12:44 07/01/17 12:44 - REVIEWED ASSESSMENTS Nursing Assessment Reviewed: Yes Vitals Reviewed: Yes Progress - Results/Orders Results/Orders: she also states that spicy foods cause her indigestion and make her feel bad. she was told her problem was GERD and they upped her dose but that has not helped. ED Results Lab/Radiology - Orders Orders: ED Orders Category Date Time Status Chem Sticks Med 07/01/17 12:51 Discontinued 1 each MC NOW ONE Neuro Symptoms Physical Exam - Physical Exam General Appearance: no acute distress, alert HEENT: no apparent trauma, EOM's intact, dry mucous membranes Neuro/Psych: alert, no evidence of acute CVA, mood/affect nml Cranial Nerves: nml as tested Cerebellar: nml as tested Pheripheral Exam: motor nml, sensation nml Neck: normal inspection Respiratory: no resp distress Abdomen: non-tender, no distention Skin: color nml, no rash, warm Extremities: non-tender Discharge Clincal Impression: Halitosis, Nausea alone Medication reaction Qualifiers: Encounter type: initial encounter Qualified Code(s): T88.7XXA - Unspecified adverse effect of drug or medicament, initial encounter Referrals: Shilpi Lopez MD [Primary Care Provider] - 2 Days Home Medications: Ambulatory Orders Chlorthalidone [Thalitone] 25 mg PO QD 11/08/15 CloNIDine HCL [Catapress] 0.41 mg PO TID 11/08/15 Losartan Potassium [Cozaar] 100 mg PO DAILY 11/08/15 Polyethylene Glycol 3350 [Miralax] 17 gm PO [id number] 11/08/15 Pravastatin Sodium 40 mg PO DAILY 11/08/15 Chlorzoxazone [Parafon Forte Dsc] 500 mg PO QID #20 tablet 07/08/16 Meloxicam [Mobic] 7.5 mg PO BID #10 tablet 07/08/16 Condition: Stable Disposition: 01 HOME, SELF-CARE Decision to Admit: NO Date of Decison to Admit: 07/01/17 Decision Time: 13:19
[2017-07-01 13:33] VITALS: BP 152/98
== END 2017-07-01 13:32 | disposition home or self-care (01) ==
LOC: ED 12:27 → EDSTATUS 12:28 → ED 13:32
DX: R19.6 Halitosis (principal); R11.0 Nausea; T88.7XXA Unspecified adverse effect of drug or medicament, initial encounter; X58.XXXA Exposure to other specified factors, initial encounter; Y93.9 Activity, unspecified; Y99.9 Unspecified external cause status
CPT/HCPCS: 99283

== ENCOUNTER 2017-07-20 15:19 | Outpatient (CLI) | payer OTHER ==
--- NOTE | 2017-07-24 10:57 | OP Clinic Progress Note ---
REASON FOR VISIT: This 57-year-old lady is seen with a lump or mass and discomfort sensation more on the right side of her neck. She had a thyroid ultrasound with a history of a palpable lump. She does have a palpable mass on the right side of the thyroid. I do not feel one on the left side. It is not particularly tender. In addition, she is point tender much more superior in the neck. She is more tender right at the level of the hyoid bone. Pushing on the left side of the hyoid bone and rotating it out, she really is fairly point tender on the hyoid on the greater cornu on the right side. There is no palpable mass. It is simply a tender greater cornu of the hyoid bone. Manasa has a family history of thyroid problems and surgery. She has a daughter who had thyroid surgery. She had a mass that was the size of a small orange by history. Clinically, it sounds as if her daughter had thyroid surgery for a goitrous condition. The ultrasound of the thyroid notes the 1.1 cm mass of the right side of the thyroid. There is a smaller 4 mm one on the left. PLAN: I went over her options of sequential follow up ultrasounds or a fine-needle biopsy. I reviewed the potential findings which could be either suspicious or not particularly, mildly suspicious or markedly suspicious for malignancy but the answers from the cytology usually are not 100% correct. This will give her a general idea of what type of results could be expected from that procedure. The patient feels like she and states that she understands well enough her options and choices and would like to go ahead with the ultrasound-guided fine- needle biopsy. Normally, something less than 0.5 cm nodule would not be biopsied. The nodule on the left side is 4 mm. The patient is there and if the retort unloader can get access to the smaller nodule, I have recommended giving it a try to see if he could do a fine-needle aspirate in addition. The general perspectives and specifics on all this have been carefully gone over with the patient. She states that she understands and chooses to go ahead with this. cc: Dr. Shilpi CHADWICK
== END 2017-07-20 15:20 ==
LOC: ENT 15:19
PROVIDERS: ATTEND Otolaryngology
DX: E04.8 Other specified nontoxic goiter (principal)
CPT/HCPCS: 99213

== ENCOUNTER 2017-08-10 12:21 | Outpatient (CLI) | payer OTHER ==
--- NOTE | 2017-08-11 09:35 | OP Clinic Progress Note ---
REASON FOR VISIT: This 57-year-old lady is seen in follow up of a needle aspirate for a calcified right thyroid nodule. The event was somewhat moderately uncomfortable for the patient. The results are not confirmatory with not enough cellularity and blood in the specimen making any reasonable assessment of the probability of being cancer difficult. She still remains with a tender and really a rock hard mass in the area of the right lobe of the thyroid. PLAN: Options and choices of which would be watchful waiting, repeat ultrasounds done serially, and a repeat needle aspirate have been offered to the patient in addition to a right thyroid lobectomy or different degrees of thyroid surgery. I have also pointed out that if it were cancerous, that she might need a follow up surgery at that time versus having a frozen section and having a total thyroidectomy. She has opted for a right thyroid lobectomy. I went over complications and the nature of the surgery and risks to the vocal cord nerve on a permanent basis with hoarseness and swallowing difficulties. Also loss of the calcium balance glands. I repeated all these issues with the patient. She acknowledges understanding. She also acknowledges that she feels she understands her choices. I have also pointed out that she is welcome to additional surgical opinions or seeing an sailing officer. Again, serial ultrasounds or additional biopsies have been offered as a reasonable treatment choice. The patient has opted and is going to have a right-sided lobectomy with isthmusectomy and a laryngoscopy. This also is a reasonable choice. Again, I have gone over complications associated with the surgery in addition to bleeding, infection, and the problems with the recurrent laryngeal nerve and calcium balance glands have been carefully delineated and pointed out quite thoroughly. The patient states that she feels like she understands and chooses to go ahead with the surgery. cc: Dr. Shilpi CHADWICK
== END 2017-08-10 12:22 ==
LOC: ENT 12:21
PROVIDERS: ATTEND Otolaryngology
DX: E07.9 Disorder of thyroid, unspecified (principal); R22.1 Localized swelling, mass and lump, neck
CPT/HCPCS: 99213

== ENCOUNTER 2017-08-11 09:24 | Outpatient (CLI) | payer OTHER ==
[2017-08-11 09:42] LABS: BASOPHILS % 1.5 (0.0-1.5); EOSINOPHILS % 5.4 % (0.0-6.8); MEAN CORPUSCULAR HEMOGLOBIN 27.8 pg (28.0-34.0); MEAN CORPUSCULAR VOLUME 82.5 fl (80.0-100.0); MONOCYTES % 3.7 % (0.0-11.0); NEUTROPHILS # 2.5 # k/uL (1.4-7.7)
[2017-08-11 10:14] LABS: eGFR (African) > 60; eGFR (Non-African) > 60
[2017-08-11 17:11] LABS: T3 TOTAL 80.3 ng/dL (80.0-200.0)
== END 2017-08-11 09:25 ==
LOC: LAB 09:24
PROVIDERS: ATTEND Otolaryngology
DX: E04.1 Nontoxic single thyroid nodule (principal)
CPT/HCPCS: 36415; 80053; 84436; 84480; 85025; 86800

== ENCOUNTER 2017-10-05 13:30 | Outpatient (CLI) | payer OTHER ==
--- NOTE | 2017-10-06 11:28 | OP Clinic Progress Note ---
REASON FOR VISIT: Manasa is seen in follow up regarding a mass on the right side of her thyroid. It has a solid center. There is some lucency. It does tend to be warm on nuclear medicine scan. Cytology is not enough cellularity. She was given options of watchful waiting. With it being warm, being some what lower probability of being malignant, I explained to the patient numerous times, along with her . However, it does have some calcifications and does have some degree of it being solid and has some characteristics of some degree of higher probability of being malignant. These clear but non-decisive factors , again, have been presented numerous times previously. The patient finally decided she simply wanted it out. It is also tender. Sometimes she has had some swallowing compression issues. Again, it remains tender. I went over all of these issues and re-read some of the scans and the attempts at FNA. The patient's hypertension has gotten much better. She is pleased with cardiology from the [facility] care that was given and her blood pressure taken at home now she says is down and significantly better and she feels better. PLAN: We will see if she can get a PET scan if possible. The ability to get this and the exact value of it is not entirely clear but it may give some additional information in a patient who has a variety of different factors involved in the right thyroid mass. Outside of that, I will see her back in 4 months and she understands the decision making as to whether to repeat the fine needle aspirate or simply get another ultrasound. cc: Dr. Shilpi CHADWICK
== END 2017-10-05 13:32 ==
LOC: ENT 13:30
PROVIDERS: ATTEND Otolaryngology
DX: E04.8 Other specified nontoxic goiter (principal); I10 Essential (primary) hypertension
CPT/HCPCS: 99213

== ENCOUNTER 2017-11-02 15:24 | Outpatient (CLI) | payer OTHER ==
--- NOTE | 2017-11-03 13:49 | OP Clinic Progress Note ---
REASON FOR VISIT: Manasa is seen in follow up of her right-sided thyroid nodule. It does cause some but not severe dysphagia. She feels a little bit tender and she does tend to notice this. With the calcifications in it, there has been a plan to do a right-sided thyroid lobectomy. The patient had hypertension that was fairly significant at the time. She was well worked up by the [facility] security checker at the [facility]. With some of the issues regarding her hypertension and her heart, it gave a consideration to having a PET scan. There is no evidence of malignancy on the PET scan in the area of the thyroid. Breast uptake is noted and I have asked her to follow up with her primary care doctor in this regard. PLAN: Although there is not a guarantee that there is no malignancy there, there may be a reduced probability. The nodule had stipplings and calcifications in it with some suggestion that there could be a malignancy. Again, with the PET scan being negative in the area of the thyroid, she and her , who is attendance today along Ree Roger, have weighed their options and they are willing to get a thyroid ultrasound in about 9 months. They understand although there is some evidence that this nodule is not malignant, that is not a guarantee. They are accepting of this plan and the risks associated with all the different options including a repeat effort at a right-sided thyroid lobectomy versus watchful waiting versus needle stick and other issues. cc: Dr. Shilpi CHADWICK
== END 2017-11-02 15:25 ==
LOC: ENT 15:24
PROVIDERS: ATTEND Otolaryngology
DX: R47.02 Dysphasia (principal); E04.9 Nontoxic goiter, unspecified; I10 Essential (primary) hypertension
CPT/HCPCS: 99213

== ENCOUNTER 2017-12-08 09:41 | Outpatient (CLI) | payer OTHER | END 2017-12-08 09:42 | LOC: OUT 09:41 | PROVIDERS: ATTEND Colon & Rectal Surgery | DX: K62.89 Other specified diseases of anus and rectum (principal); E11.9 Type 2 diabetes mellitus without complications; I10 Essential (primary) hypertension; E78.00 Pure hypercholesterolemia, unspecified | CPT/HCPCS: 99213 ==

== ENCOUNTER 2018-02-27 04:40 | Emergency (ER) | payer OTHER ==
[2018-02-27] MEDS ORDERED: ORPHENADRINE CITRATE 60 MG/2ML ONE (05:03)
[2018-02-27] MEDS ORDERED: KETOROLAC TROMETHAMINE 60 MG/2 ML VIAL ONE (05:03)
[2018-02-27] MEDS ORDERED: KETOROLAC TROMETHAMINE 60 MG/2 ML VIAL IM ONE (05:12)
[2018-02-27] MEDS ORDERED: ORPHENADRINE CITRATE 60 MG/2ML IM ONE (05:12)
--- NOTE | 2018-02-27 05:15 | ED Physician Documentation ---
Neck Injury/Pain - HISTORIAN Historian: patient - HPI Stated Complaint: rt side neck pain Chief Complaint: Neck Pain Onset: today Duration: continues in ED Recent Injury: No Context: turning Where: home Severity: moderate Exacerbated By: movement of neck Relieved By: remaining still Further Comments: yes (58 year old female patient presents with complaint of right side neck pain. Patient states she fell asleep with her neck bent over, awoke this morning with pain on the right side, difficulty to turning neck to right and left. Denies fall or injury.) - ROS NEURO/PSYCH: denies: difficulty with speech EYES/ENT: none CVS/RESP: none CONST: no problems GI/: denies: nausea, vomiting MS/SKIN/LYMPH: none - PAST HX Past History: denies: neck injury, neck pain Cardiac Risk Factors: hypertension Allergies/Adverse Reactions: Allergies Allergy/AdvReac Type Severity Reaction Status Date / Time latex Allergy Intermediate Rash Verified 02/27/18 05:02 Penicillins Allergy Intermediate Nausea/Vomi Verified 02/27/18 05:02 ting erythromycin base Allergy Verified 02/27/18 05:02 Home Medications: Ambulatory Orders Medication Instructions Recorded Losartan Potassium [Cozaar] 100 mg PO DAILY 11/08/15 Polyethylene Glycol 3350 [Miralax] 17 gm PO [id number] 11/08/15 Albuterol Sulfate [Proair 90 mcg IH QID PRN 02/27/18 Respiclick] Baclofen [Liorasal] 10 mg PO TID PRN #15 tablet 02/27/18 Isosorbide Mononitrate [Imdur] 30 mg PO DAILY 02/27/18 - SOCIAL HX Smoking History: non-smoker - FAMILY HX Family History: denies: none - VITAL SIGNS Vital Signs: Vital Signs Temp Pulse Resp BP Pulse Ox 98.1 F 92 H 16 210/104 100 02/27/18 04:42 02/27/18 04:42 02/27/18 04:42 02/27/18 04:42 02/27/18 04:42 - REVIEWED ASSESSMENT Nursing Assessment Reviewed: Yes Vitals Reviewed: Yes ED Results Lab/Radiology - Orders Orders: ED Orders Category Date Time Status Ketorolac Tromethamine [Toradol] Med 02/27/18 05:03 Discontinued 60 mg .ROUTE .STK-MED ONE Ketorolac Tromethamine [Toradol] Med 02/27/18 05:12 Once 60 mg IM NOW ONE Orphenadrine Citrate [Norflex] Med 02/27/18 05:03 Discontinued 60 mg .ROUTE .STK-MED ONE Orphenadrine Citrate [Norflex] Med 02/27/18 05:12 Once 60 mg IM NOW ONE Neck Injury/Pain - Physical Exam General Appearance: moderate distress Neck: nml inspection, muscle spasm (right), decreased ROM (related to pain) Nexus Criteria: Nexus criteria neg. 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
[2018-02-27 05:36] VITALS: BP 195/92
== END 2018-02-27 05:30 | disposition home or self-care (01) ==
LOC: ED 04:40
DX: M62.838 Other muscle spasm (principal)
CPT/HCPCS: J1885; J2360; 96372; 99283

== ENCOUNTER 2018-08-01 10:23 | Outpatient (CLI) | payer OTHER ==
--- NOTE | 2018-08-01 17:32 | Diagnostic Imaging Report ---
АЛЕКСАНДР KAY [facility] [address] [id number] Report Submission Date: Aug 01, 2018 2:22:52 PM CDT Patient Study Name: ADRIANO DICKINSON Date: Aug 01, 2018 10:52:12 AM CDT Modality Type: US Gender: F Description: US THYROID : 60 Institution: [facility] Physician: АЛЕКСАНДР KAY Thyroid ultrasound History: Thyroid nodules The left thyroid lobe measures 3.9 x 1.6 x 2.3 cm. The right thyroid lobe measures 4.6 x 1.9 x 2.0 cm. The right aspect of the thyroid isthmus is larger than left. At the lower pole on the right, there is a complex nodule which does appear to have a peripheral calcified rim but there also appear to be internal calcifications. This nodule measures 1.4 x 1.1 x 1.0 cm in greatest dimension. At the midpole, there is a mixed solid and cystic 6 x 6 x 5 mm nodule. Additionally, there is a 5 mm colloid cyst. On the left, there is a single 3 mm colloid cyst. Impression: At the lower pole on the right, there is a complex nodule measuring 1.4 cm in greatest dimension. This nodule does appear to contain peripheral as well as central calcifications. Ultrasound-guided biopsy of this complex nodule would be recommended. Electronically signed on Aug 01, 2018 2:22:52 PM CDT by: Ree CHADWICK
== END 2018-08-01 10:24 ==
LOC: RAD 10:23
PROVIDERS: ATTEND Otolaryngology
DX: E04.1 Nontoxic single thyroid nodule (principal)
CPT/HCPCS: 76536

== ENCOUNTER 2018-08-02 15:51 | Outpatient (CLI) | payer OTHER ==
--- NOTE | 2018-08-07 10:02 | OP Clinic Progress Note ---
REASON FOR VISIT: This 58-year-old lady is seen accompanied by her . She has had a thyroid issue. There is a nodule more on the right side than on the left as an issue. They are calcifications. In May, the nodule measured 1.1 cm and on August 01, 2018, it measured 1.4 cm. Clarifying, the Radha ultrasound was in 2017 and the follow up ultrasound was on August 01, 2018. Clinically, the patient feels like it may be a little smaller. She does not have problems swallowing. It is not tender when she touches it and when I palpated the neck, there was some degree of fullness there. I do not feel cervical lymphadenopathy. The patient is not particularly hoarse. I reviewed the above findings. The recommendation before was either a guided biopsy or follow up. The recommendation is to have an ultrasound-guided biopsy of the complex thyroid nodule. I went over with the patient and her the risks, problems, and complications associated with thyroid probable lobectomy. Risks more specific to this surgery are loss of calcium balance glands and parathyroid glands and the recurrent laryngeal nerve which has hoarseness, swallowing problems, and aspiration issues. They state that they understand and felt like they understood that before as a thyroidectomy/lobectomy had been considered previously. Patient accepts these risks, problems, and complications. PLAN: Patient will have an ultrasound-guided needle biopsy. cc: Dr. Shilpi CHADWICK
== END 2018-08-02 15:52 ==
LOC: ENT 15:51
PROVIDERS: ATTEND Otolaryngology
DX: E07.9 Disorder of thyroid, unspecified (principal)
CPT/HCPCS: 99213

== ENCOUNTER 2018-11-01 13:36 | Outpatient (CLI) | payer OTHER ==
--- NOTE | 2018-11-08 11:03 | OP Clinic Progress Note ---
REASON FOR VISIT: Manasa is seen in follow up of issues regarding her thyroid. These have been followed by me for about 14 months. She has had a recent a radiology consultation for a scan and an essential biopsy with Dr. Zendejas. He saw and evaluated her on September 13, 2018. I have also personally talked with him. The patient and her , who accompanies her today, feel comfortable with not biopsying and excising the thyroid. Progressively, I believe they understand the guidelines that have been covered again intermittently by me with them and with Dr. Zendejas at the last setting with the radiologist. On palpating her neck, there is no cervical lymphadenopathy. The thyroid by palpation is the same. No significant change. PLAN: The patient and her both agree that they will repeat the ultrasound in about 6 months. If it has not changed then maybe an interval of 6 months again or perhaps a year depending upon the findings about half a year from now. I believe there is good understanding. In addition, the patient pointed out she has some swelling that is not tender with no drainage in the submental area. This feels to be more just submental fat pad by palpation. cc: Dr. Shilpi CHADWICK
== END 2018-11-01 13:38 ==
LOC: ENT 13:36
PROVIDERS: ATTEND Otolaryngology
DX: E07.9 Disorder of thyroid, unspecified (principal)
CPT/HCPCS: 99212

== ENCOUNTER 2019-01-29 11:12 | Day surgery (SDC) | payer OTHER ==
[~2019-01-29 11:12] MED LIST: LACTATED RINGERS 1,000 ML IV.SOLN IV ONE; LIDOCAINE HCL 2% PF 100MG/5ML VIAL IJ ONE; PROPOFOL 200 MG/20 ML VIAL IV ONE
--- NOTE | 2019-02-13 14:00 | GI Report ---
PROCEDURE PERFORMED: Colonoscopy. SURGEON: Erika Medina M.D., StanislavCMaritaP. INDICATION FOR PROCEDURE: This 58-year-old woman is referred for a colonoscopy. She does have chronic renal insufficiency, coronary artery disease, hypercholesterolemia, diabetes. She is 54 and weighs 157 lbs. PROCEDURE MEDICATION: Propofol, as per Anesthesia. DESCRIPTION OF PROCEDURE: The Olympus video colonoscope was advanced in the rectum and sigmoid. The prep was just fair. There still was some residual stool though we were able to slowly maneuver all the way to the base of the cecum. The appendiceal orifice and ileocecal valve looked normal. We did have to lavage a number of areas to try to improve visibility. On slow withdrawal, the cecum, ascending colon, no obvious intraluminal lesions noted. The descending colon, sigmoid scattered diverticular disease. No obvious diverticulitis. In the rectum, again no polyps or lesions noted. The patient tolerated the procedure well. FINDINGS: Moderate diverticular disease in sigmoid and descending colon. The prep was only fair. RECOMMENDATIONS: 1. Increase fiber in the diet such as Benefiber, Metamucil or Citrucel. 2. Consider relook at her colon in 10 years, sooner if clinically indicated. 3. Resume all of her other medications. ERIKA MEDINA M.D., F.A.C.P. Lena R: 02[birth year] Job#: [id number] Cc: Shilpi Lopez M.D. [address] [place] [address] Sent via ] NETTA
== END 2019-01-29 13:42 | disposition home or self-care (01) ==
LOC: OPSURG 11:12
PROVIDERS: ATTEND Internal Medicine Gastroenterology
DX: Z12.11 Encounter for screening for malignant neoplasm of colon (principal); K57.30 Diverticulosis of large intestine without perforation or abscess without bleeding
CPT/HCPCS: 45378; J2001; J2704; J7120; S1016

== ENCOUNTER 2019-05-26 20:53 | Emergency (ER) | payer OTHER ==
--- NOTE | 2019-05-26 22:37 | Diagnostic Imaging Report ---
KINGS GOSS [facility] [address] [facility] [address] [id number] Report Submission Date: May 26, 2019 10:33:39 PM CDT Patient Study Name: ADRIANO DICKINSON Date: May 26, 2019 9:14:27 PM CDT Modality Type: DX Gender: F Description: ABDOMEN 1VIEW : 60 Institution: [facility] Physician: KINGS GOSS One view abdomen Clinical history: Abdominal discomfort. Constipation. Findings: Examination the abdomen and single supine view demonstrates stool throughout the colon. There is minimal small bowel gas but no small bowel distention. Degenerative changes are seen in the thoracolumbar vertebrae. Properitoneal fat lines are preserved. There are no unusual intra-abdominal calcifications. Impression: 1. Stool throughout the colon. Electronically signed on May 26, 2019 10:33:39 PM CDT by: Brenden CHADWICK
--- NOTE | 2019-05-26 22:42 | ED Physician Documentation ---
GI Bleed - HISTORIAN Historian: patient, spouse - HPI Stated Complaint: CONSTIPATION Chief Complaint: Abdominal Pain (Constipation) Additional Information: Patient is a 59-year-old female who presents to the ER with c/o constipation. Patient states that she has a chronic history of constipation. Last BM was 3-4 days ago. She states that we normally give her an oil enema. Discussed increasing fiber and water to diet. Onset: days ago Timing: gradual onset Severity: moderate - Associated Symptoms Last Bowel Movement: 05/22/19 Description of Stools: constipation Abdominal Pain: cramping, moderate Other Related Symptoms: denies: nausea, vomiting - ROS CONST: no problems SKIN/LYMPH: denies: leg swelling CVS/RESP: none EYES/ENT: denies: problems with vision MS: none NEURO/PSYCH: denies: confusion - PAST HX Past History: other (constipation) Other History: hypertension Immunizations: UTD Allergies/Adverse Reactions: Allergies Allergy/AdvReac Type Severity Reaction Status Date / Time latex Allergy Intermediate Rash Verified 05/26/19 22:04 Penicillins Allergy Intermediate Nausea/Vomi Verified 05/26/19 22:04 ting naproxen Allergy Unknown Verified 05/26/19 22:04 erythromycin base Allergy Verified 05/26/19 22:04 MYCINS Allergy Unknown Uncoded 05/26/19 22:04 POWDER GLOVES Allergy Unknown Uncoded 05/26/19 22:04 Home Medications: Ambulatory Orders Medication Instructions Recorded Isosorbide Mononitrate [Imdur] 30 mg PO DAILY 02/27/18 - SOCIAL HX Smoking History: quit less than 1 year Alcohol Use: none Drug Use: none - FAMILY HX Family History: none - VITAL SIGNS Vital Signs: Vital Signs Temp Pulse Resp BP Pulse Ox 97.9 F 84 18 154/83 98 05/26/19 23:29 05/26/19 23:29 05/26/19 23:29 05/26/19 23:29 05/26/19 23:29 - REVIEWED ASSESSMENTS Nursing Assessment Reviewed: Yes Vitals Reviewed: Yes Procedures - Additional Procedures Progress: Oil enema given in ER by OIL RIG ROUGHNECK Progress - Progress Progress: Patient had small laxative after enema Patient was given Mag citrate 1/2 now and 1/2 in an hour ED Results Lab/Radiology - Radiology Radiology Impressions: One view abdomen Clinical history: Abdominal discomfort. Constipation. Findings: Examination the abdomen and single supine view demonstrates stool throughout the colon. There is minimal small bowel gas but no small bowel distention. Degenerative changes are seen in the thoracolumbar vertebrae. Properitoneal fat lines are preserved. There are no unusual intra-abdominal calcifications. Impression: 1. Stool throughout the colon. - Orders Orders: ED Orders Category Date Time Status Oil Enema [Administer Enema] 1T Care 05/26/19 22:24 Active ABDOMEN 1VIEW [RAD] Stat Exams 05/26/19 Completed Magnesium Citrate [Citrate of Magnesia] Med 05/26/19 23:02 Discontinued 296 ml PO NOW ONE Abdominal Pain Physical Exam - Physical Exam General Appearance: alert, mild distress EENT: eye inspection normal, ENT inspection normal NECK: supple RESPIRATORY: breath sounds normal CVS: heart sounds normal ABDOMEN: decreased BS, distended SKIN: warm/dry, normal color EXTREMITIES: non-tender, normal range of motion NEURO: oriented X3, CN's nml as tested, motor nml, sensation nml, mood/affect nml, cognition normal Vital Signs: Vital Signs Temp Pulse Resp BP Pulse Ox 97.9 F 84 18 154/83 98 05/26/19 23:29 05/26/19 23:29 05/26/19 23:29 05/26/19 23:29 05/26/19 23:29 Discharge Clincal Impression: Constipation Referrals: Shilpi Lopez MD [Primary Care Provider] - 2 Days Additional Instructions: Enema given in ER Increase Fiber in Diet Try "3 Day Cleanse" in the laxative aisle at [facility] (It is not a laxative but very high in fiber) Increase water intake Follow up with PCP as needed Condition: Good Disposition: 01 HOME, SELF-CARE Decision to Admit: NO Decision Time: 23:54
[2019-05-26] MEDS ORDERED: MAGNESIUM CITRATE 296 ML BOTTLE PO ONE (23:02)
[2019-05-26 23:32] VITALS: BP 154/83
== END 2019-05-26 23:29 | disposition home or self-care (01) ==
LOC: ED 20:53
DX: K59.00 Constipation, unspecified (principal)
CPT/HCPCS: 74018; 99283

== ENCOUNTER 2019-08-20 14:32 | Emergency (ER) | payer OTHER ==
--- NOTE | 2019-08-20 14:37 | ED Physician Documentation ---
Headache - HISTORIAN Historian: patient - HPI Stated Complaint: headache Chief Complaint: Headache Onset: days ago (4) Timing: still present, other ("sinus pain on left side" ) Severity: moderate Quality: similar to previous, pain, throbbing Associated Symptoms: sensitivity to light (occasionally ). denies: fever, chills, sweating, problems with vision, nausea, vomiting, neck pain, speech problems, trouble walking, tingling, numbness, dizziness, light-headedness Preceding Symptoms: denies: visual disturbance Exacerbated By: other (nothing she can tell ) Further Comments: yes (She reports she has had some "issues with bleeding in my eyes" she is following a eye dr for this issue and does see him tomorrow. She has had a "headache since Tuesday like I have had before" she was concerned the headache would increase he uncontrolled b/p. No injury to her head. NO other complaints) - ROS NEURO/PSYCH: denies: confusion, anxiety, depression, fainting EYES/ENT: sinus pain. denies: sore throat, difficulty swallowing CVS/RESP: denies: chest pain, shortness of breath GI/: denies: abdominal pain MS/SKIN/LYMPH: denies: muscle aches, back pain, rash - PAST HX Medical History: hypertension Allergies/Adverse Reactions: Allergies Allergy/AdvReac Type Severity Reaction Status Date / Time latex Allergy Intermediate Rash Verified 08/20/19 14:50 Penicillins Allergy Intermediate Nausea/Vomi Verified 08/20/19 14:50 ting naproxen Allergy Unknown Verified 08/20/19 14:50 erythromycin base Allergy Verified 08/20/19 14:50 MYCINS Allergy Unknown Uncoded 08/20/19 14:50 POWDER GLOVES Allergy Unknown Uncoded 08/20/19 14:50 Home Medications: Ambulatory Orders Medication Instructions Recorded Isosorbide Mononitrate [Imdur] 30 mg PO DAILY 02/27/18 Polyethylene Glycol 3350 [Miralax] 17 gm PO DAILY 08/20/19 - SOCIAL HX Smoking History: non-smoker Alcohol Use: none Drug Use: none - Family HX Family History: none - VITAL SIGNS Vital Signs: Vital Signs Temp Pulse Resp BP Pulse Ox 98.0 F 92 H 16 189/109 98 08/20/19 14:40 08/20/19 14:40 08/20/19 14:40 08/20/19 14:40 08/20/19 14:40 - REVIEWED ASSESSMENTS Nursing Assessment Reviewed: Yes Vitals Reviewed: Yes Progress - Progress Progress: 1600: pain is now 02/04 DG ED Results Lab/Radiology - Lab Results Lab Results: Lab Results 08/20/19 08/20/19 15:03 15:03 WBC 5.20 K/ul K/ul (4.00-12.00) RBC 3.93 M/ul M/ul (3.90-5.20) Hgb 10.7 g/dL L g/dL (11.5-16.0) Hct 32.7 % L % (34.5-46.5) MCV 83.0 fl fl (80.0-100.0) MCH 27.4 pg L pg (28.0-34.0) MCHC 32.8 g/dL g/dL (30.0-36.0) RDW 13.4 % % (11.3-14.3) Plt Count 264 K/mm3 K/mm3 (130-400) Neut % (Auto) 55.1 % % (39.0-79.0) Lymph % (Auto) 34.4 % % (16.0-50.0) Brooks % (Auto) 5.9 % % (0.0-11.0) Eos % (Auto) 4.3 % % (0.0-6.8) Baso % (Auto) 0.3 % % (0.0-1.5) Neut # (Auto) 2.9 # k/uL # k/uL (1.4-7.7) Lymph # (Auto) 1.8 # k/uL # k/uL (0.6-4.0) Brooks # (Auto) 0.3 # k/uL # k/uL (0.0-0.9) Eos # (Auto) 0.2 # k/uL # k/uL (0.0-0.6) Baso # (Auto) 0.0 # k/uL # k/uL (0.0-0.5) Sodium 142 mmol/L mmol/L (137-145) Potassium 3.9 mmol/L mmol/L (3.5-5.1) Chloride 102 mmol/L mmol/L (98-107) Carbon Dioxide 28 mmol/L mmol/L (22-30) Anion Gap 15.9 BUN 39 mg/dL H mg/dL (7-17) Creatinine 2.08 mg/dL H mg/dL (0.52-1.04) Estimated Creat Clear 36 Est GFR ( Amer) 31 L (60 - ) Est GFR (Non-Af Amer) 26 L (60 - ) Glucose 241 mg/dL H mg/dL (74-106) Calcium 9.7 mg/dL mg/dL (8.4-10.2) Total Bilirubin 0.4 mg/dL mg/dL (0.2-1.3) AST 49 U/L H U/L (15-46) ALT 10 U/L L U/L (13-69) Alkaline Phosphatase 105 U/L U/L (38-126) Total Protein 7.3 g/dL g/dL (6.3-8.2) Albumin 4.1 g/dL g/dL (3.5-5.0) - Orders Orders: ED Orders Category Date Time Status IV Started NOW Care 08/20/19 15:02 Active CBC/PLATELET/DIFF Stat Lab 08/20/19 15:03 Completed CMP Stat Lab 08/20/19 15:03 Completed 0.9 % Sodium Chloride [Normal Saline] 1,000 ml Med 08/20/19 15:03 Active IV NOW Ketorolac Tromethamine [Toradol] Med 08/20/19 15:03 Discontinued 30 mg IV NOW ONE diphenhydrAMINE HCL [Benadryl] Med 08/20/19 15:03 Discontinued 25 mg IVP NOW ONE methylPREDNISolone SOD SUCC [SOLU-Medrol] Med 08/20/19 15:03 Discontinued 125 mg IVP NOW ONE Headache Physical Exam - EXAM General Appearance: no acute distress, alert EENT: no facial swelling, PERRL, pain over sinuses (left front and maxillary), pharynx nml. No: tender temporal artery Neck: normal inspection. No: stiff neck Respiratory: no resp distress, chest non-tender, breath sounds normal CVS: reg. rate & rhythm, heart sounds nml Abdomen: non-tender Skin: color nml, no rash Extremitites: non-tender - NEURO/PSYCH Higher Functions: alert, oriented x3, nml speech, mood/affect nml Cranial: nml as tested Cerebellar: nml as tested Sensorimotor: motor nml Discharge Clincal Impression: Migraine Qualifiers: Migraine type: other Status migrainosus presence: without status migrainosus Intractability: not intractable Qualified Code(s): G43.809 - Other migraine, not intractable, without status migrainosus Referrals: Shilpi Lopez MD [Primary Care Provider] - 2 Days Comments: 1. Continue current meds 2. Keep follow up for eye issue 3. Follow up with PCP in 2-4 days 4. Return to ER for any increasing concerns 5. Doxycycline 100 mg take 1 by mouth BID x 10 days Condition: Stable Disposition: 01 HOME, SELF-CARE Decision to Admit: NO Date of Decison to Admit: 08/20/19 Decision Time: 16:08
[2019-08-20] MEDS: 0.9 % SODIUM CHLORIDE 1,000 ML IV ONE (15:33)
[2019-08-20] MEDS: methylPREDNISolone SOD SUCC 125 MG/2 ML VIAL IVP ONE (15:35)
[2019-08-20] MEDS: diphenhydrAMINE HCL 50 MG/ML VIAL IVP ONE (15:35)
[2019-08-20] MEDS: KETOROLAC TROMETHAMINE 30 MG/1ML VIAL IV ONE (15:37)
[2019-08-20 15:42] LABS: BASOPHILS % 0.3 % (0.0-1.5); NEUTROPHILS # 2.9 # k/uL (1.4-7.7)
[2019-08-20 16:49] VITALS: BP 198/118
== END 2019-08-20 16:46 | disposition home or self-care (01) ==
LOC: ED 14:32
DX: G43.809 Other migraine, not intractable, without status migrainosus (principal)
CPT/HCPCS: 80053; 85025; 96361; 96374; 96375; 99284; J1200; J1885; J2930; J7030; S1016

== ENCOUNTER 2019-09-18 12:47 | Outpatient (CLI) | payer OTHER | END 2019-09-18 13:20 | LOC: NEPHRO 12:47 | PROVIDERS: ATTEND Internal Medicine Nephrology | DX: I12.9 Hypertensive chronic kidney disease with stage 1 through stage 4 chronic kidney disease, or unspecified chronic kidney disease (principal); E11.22 Type 2 diabetes mellitus with diabetic chronic kidney disease; N18.9 Chronic kidney disease, unspecified; Z79.4 Long term (current) use of insulin | CPT/HCPCS: 99214 ==